=== PATIENT | male | born 2000 | race Hispanic/Latino ===

== ENCOUNTER 2023-12-31 08:24 | Emergency (ER) | payer OTHER ==
[~2023-12-31] VITALS: Ht 180.3 cm; Wt 98.9 kg
[2023-12-31 08:25] VITALS: BP 128/83; TEMP 97.8; O2SAT 99
[2023-12-31] MEDS ORDERED: ERYT5OIN25 OP (09:10)
[2023-12-31] MEDS: ERYTHROMYCIN OPHTH OINT OU ONE (09:30)
== END 2023-12-31 09:35 | disposition home or self-care (01) ==
LOC: M ED 08:24
DX: H10.9 Unspecified conjunctivitis (principal); F17.290 Nicotine dependence, other tobacco product, uncomplicated

== ENCOUNTER 2024-07-09 13:57 | Emergency (ER) | payer OTHER ==
[~2024-07-09] VITALS: Ht 180.3 cm; Wt 109.5 kg
[~2024-07-09 13:57] MED LIST: ERYT5OIN25 OP
[2024-07-09] MEDS ORDERED: PSEU1TAB3 (14:02)
[2024-07-09 15:00] LABS: BASO # 0.1 10^3/uL (0.0-0.2); EOS # 0.1 10^3/uL (0.0-0.5); EOS % 1.8 % (0.0-3.0); HEMOGLOBIN 15.9 g/dl (13.5-17.5); LYMPH # 0.8 10^3/uL (1.5-5.0); LYMPH % 15.2 % (24.0-44.0); MEAN CORPUSCULAR HEMOGLOBIN 30.1 pg (27.0-33.0); MEAN CORPUSCULAR HGB CONC 33.1 g/dl (32.0-36.5); MEAN CORPUSCULAR VOLUME 90.9 fl (80.0-96.0); MONO # 0.5 10^3/uL (0.0-0.8); MONO % 9.9 % (2.0-8.0); NEUTROPHILS # 3.6 10^3/uL (1.5-8.5); NEUTROPHILS % 71.9 % (36.0-66.0); PLATELET COUNT, AUTOMATED 164 10^3/uL (150-450); RED BLOOD COUNT 5.28 10^6/uL (4.30-6.10)
[2024-07-09 15:22] LABS: BLOOD UREA NITROGEN 18 MG/DL (9-23); CALCIUM LEVEL 9.2 MG/DL (8.5-10.1); CARBON DIOXIDE LEVEL 27 MMOL/L (20-31); CHLORIDE LEVEL 104 MMOL/L (98-107); CREATININE FOR GFR 0.98 MG/DL (0.70-1.30); GLOMERULAR FILTRATION RATE > 60.0 (>60); GLUCOSE, FASTING 94 MG/DL (60-100); POTASSIUM SERUM 4.1 MMOL/L (3.5-5.1); SODIUM LEVEL 140 MMOL/L (136-145)
[2024-07-09 19:00] VITALS: O2SAT 98
[2024-07-09 19:52] VITALS: BP 124/80
[2024-07-09] MEDS ORDERED: AMOX875T2 PO (20:09)
[2024-07-09] MEDS: AUGMENTIN 875 MG TAB PO ONE (20:15)
[2024-07-09 20:19] VITALS: TEMP 99.6
== END 2024-07-09 20:21 | disposition home or self-care (01) ==
LOC: M ED 13:57
DX: R55 Syncope and collapse (principal); J01.90 Acute sinusitis, unspecified; F17.290 Nicotine dependence, other tobacco product, uncomplicated